=== PATIENT | male | born 1985 | race African-American/Black ===

== ENCOUNTER 2017-06-06 02:04 | Emergency (ER) | payer MEDICAID ==
[~2017-06-06] VITALS: Ht 175.3 cm; Wt 81.8 kg
[2017-06-06] MEDS: BACITRACIN 0.9 GM PACKET OINTMENT TP ONE (03:46)
[2017-06-06 03:59] LABS: BASOPHILS % (AUTO) 0.7 % (0.0-2.0); HEMATOCRIT 46.1 % (41-53); HEMOGLOBIN 15.3 g/dL (13.5-17.5); LYMPHOCYTES # (AUTO) 1.8 K/uL (1.0-4.8); LYMPHOCYTES % (AUTO) 19.5 % (22.0-44.0); MEAN CORPUSCULAR HEMOGLOBIN 26.7 pg (26.0-34.0); MEAN CORPUSCULAR HGB CONC 33.2 G/dL (31.0-37.0); MEAN CORPUSCULAR VOLUME 80 fL (80-100); MONOCYTES # (AUTO) 0.8 K/uL (0.1-1.0); MONOCYTES % (AUTO) 8.2 % (2.0-9.0); NEUTROPHILS # (AUTO) 6.4 K/uL (1.8-7.7); NEUTROPHILS % (AUTO) 69.6 % (40.0-70.0); PLATELET COUNT (AUTO) 178 K/uL (150-450); RED BLOOD CELL COUNT(AUTO) 5.74 MIL/uL (4.50-5.90); RED CELL DISTRIBUTION WIDTH 13.6 % (11.5-14.5)
[2017-06-06 04:14] LABS: ANION GAP 9 mmol/L (8-16); CALCIUM, TOTAL 9.3 mg/dL (8.8-10.5); CARBON DIOXIDE 28 mmol/L (22-29); CHLORIDE 97 mmol/L (98-107); CREATININE 1.04 mg/dL (0.60-1.30); GLOMERULAR FILTR. RATE CALC > 60 mL/min (>60); GLUCOSE,RANDOM 120 mg/dL (70-110); POTASSIUM 4.4 mmol/L (3.5-5.1); SODIUM SERUM 134 mmol/L (136-145); UREA NITROGEN, BLOOD 17 mg/dL (7-18)
[2017-06-06 04:18] LABS: AMPHET/METH SCREEN,URINE NEGATIVE (NEGATIVE); BARBITURATE SCREEN, URINE NEGATIVE (NEGATIVE); BENZODIAZEPINES SCREEN,URINE NEGATIVE (NEGATIVE); CANNABINOID SCREEN,URINE NEGATIVE (NEGATIVE); COCAINE SCREEN,URINE NEGATIVE (NEGATIVE); METHADONE SCREEN, URINE NEGATIVE (NEGATIVE); OPIATE SCREEN,URINE NEGATIVE (NEGATIVE); PHENCYCLIDINE SCREEN,URINE NEGATIVE (NEGATIVE)
[2017-06-06 04:47] VITALS: BP 128/76
== END 2017-06-06 04:49 | disposition home or self-care (01) ==
LOC: EMS 02:05
DX: S90.415A Abrasion, left lesser toe(s), initial encounter (principal); R42 Dizziness and giddiness; F17.210 Nicotine dependence, cigarettes, uncomplicated; X58.XXXA Exposure to other specified factors, initial encounter; Y93.89 Activity, other specified; Y92.89 Other specified places as the place of occurrence of the external cause; Y99.8 Other external cause status
CPT/HCPCS: 99284; 99406

== ENCOUNTER 2017-06-21 20:08 | Inpatient (IN) | payer MEDICAID ==
[~2017-06-21] VITALS: Ht 180.3 cm; Wt 87.6 kg
[2017-06-21] MEDS ORDERED: DSS100 PO (20:27)
[2017-06-21] MEDS ORDERED: LITH600 PO (20:27)
[2017-06-21] MEDS ORDERED: OLAN10TA6 PO (20:27)
[2017-06-21] MEDS ORDERED: IBUP-2070 PO (20:27)
[2017-06-21] MEDS ORDERED: DIPH25 PO (20:27)
[2017-06-21] MEDS ORDERED: ASCO500 PO (20:27)
[2017-06-21] MEDS ORDERED: VIST50 PO (20:27)
[2017-06-21] MEDS ORDERED: OLAN10TA3 PO (20:27)
[2017-06-21 20:40] LABS: BASOPHILS % (AUTO) 0.3 % (0.0-2.0); HEMATOCRIT 41.3 % (41-53); HEMOGLOBIN 13.9 g/dL (13.5-17.5); LYMPHOCYTES # (AUTO) 1.8 K/uL (1.0-4.8); LYMPHOCYTES % (AUTO) 13.1 % (22.0-44.0); MEAN CORPUSCULAR HEMOGLOBIN 26.8 pg (26.0-34.0); MEAN CORPUSCULAR HGB CONC 33.5 G/dL (31.0-37.0); MEAN CORPUSCULAR VOLUME 80 fL (80-100); MONOCYTES # (AUTO) 1.1 K/uL (0.1-1.0); MONOCYTES % (AUTO) 7.7 % (2.0-9.0); NEUTROPHILS # (AUTO) 10.7 K/uL (1.8-7.7); NEUTROPHILS % (AUTO) 77.9 % (40.0-70.0); PLATELET COUNT (AUTO) 197 K/uL (150-450); RED BLOOD CELL COUNT(AUTO) 5.17 MIL/uL (4.50-5.90)
[2017-06-21 20:49] LABS: ANION GAP 7 mmol/L (8-16); CALCIUM, TOTAL 9.2 mg/dL (8.8-10.5); CARBON DIOXIDE 29 mmol/L (22-29); CHLORIDE 103 mmol/L (98-107); CREATININE 1.32 mg/dL (0.60-1.30); GLOMERULAR FILTR. RATE CALC > 60 mL/min (>60); GLUCOSE,RANDOM 107 mg/dL (70-110); POTASSIUM 3.8 mmol/L (3.5-5.1); SODIUM SERUM 139 mmol/L (136-145); UREA NITROGEN, BLOOD 11 mg/dL (7-18)
[2017-06-21 20:55] LABS: ALANINE AMINOTRANSFERASE 25 U/L (12-78); ALBUMIN 4.2 g/dL (3.4-5.0); ALKALINE PHOSPHATASE 66 U/L (46-116); ASPARTATE AMINOTRANSFERASE 22 U/L (15-37); BILIRUBIN,TOTAL 0.3 mg/dL (0.1-1.0); TOTAL PROTEIN, SERUM 7.5 g/dL (6.4-8.2)
[2017-06-21 20:59] LABS: AMPHET/METH SCREEN,URINE NEGATIVE (NEGATIVE); BARBITURATE SCREEN, URINE NEGATIVE (NEGATIVE); BENZODIAZEPINES SCREEN,URINE NEGATIVE (NEGATIVE); CANNABINOID SCREEN,URINE NEGATIVE (NEGATIVE); COCAINE SCREEN,URINE NEGATIVE (NEGATIVE); METHADONE SCREEN, URINE NEGATIVE (NEGATIVE); OPIATE SCREEN,URINE NEGATIVE (NEGATIVE); PHENCYCLIDINE SCREEN,URINE NEGATIVE (NEGATIVE)
[2017-06-21] MEDS ORDERED: DiphenhydrAMINE HCL 50 MG/ML VIAL ONE (22:58)
[2017-06-21] MEDS ORDERED: LORazepam 2 MG/ML VIAL ONE (22:58)
[2017-06-21] MEDS ORDERED: HALOPERIDOL LACTATE 5 MG/ML VIAL ONE (22:58)
[2017-06-21] MEDS ORDERED: DiphenhydrAMINE HCL 50 MG/ML VIAL IM ONE (23:00)
[2017-06-21] MEDS ORDERED: HALOPERIDOL LACTATE 5 MG/ML VIAL IM ONE (23:00)
[2017-06-21] MEDS ORDERED: LORazepam 2 MG/ML VIAL IM ONE (23:00)
[2017-06-22] MEDS: ZOLPIDEM TARTRATE 10 MG TABLET PO PRN (03:42)
[2017-06-22] MEDS: LORazepam 2 MG TABLET PO PRN ×2 (03:42→18:04)
[2017-06-22] MEDS ORDERED: LIDOCAINE HCL 1% 10 ML VIAL INJ ONE (03:45)
[2017-06-22] MEDS ORDERED: POVIDONE-IODINE 10% 15 ML SOLUTION UD TP ONE (03:45)
[2017-06-22 04:15] LABS: APPEARANCE,URINE CLEAR (CLEAR); BILIRUBIN,URINE NEGATIVE (NEGATIVE); GLUCOSE, URINE (UA) NEGATIVE (NEGATIVE); KETONES,URINE NEGATIVE (NEGATIVE); LEUKOCYTE ESTERASE ,URINE NEGATIVE (NEGATIVE); NITRATE,URINE NEGATIVE (NEGATIVE); OCCULT BLOOD,URINE NEGATIVE (NEGATIVE); PH,URINE 6.5 (5.0-8.0); PROTEIN,URINE NEGATIVE (NEGATIVE); UROBILINOGEN,URINE 0.2 mg/dL (<=1.0)
[2017-06-22] MEDS ORDERED: PERTUSS(ACELL),DIPH,TET VAC/PF 0.5 ML VIAL IM ONE (04:15)
[2017-06-22] MEDS ORDERED: LIDOCAINE HCL/PF 1% 2 ML VIAL ONE (04:20)
[2017-06-22] MEDS ORDERED: LIDOCAINE HCL/PF 1% 2 ML VIAL IM ONE (04:30)
[2017-06-22] MEDS ORDERED: ONDANSETRON HCL 4 MG TABLET PO PRN (08:00)
[2017-06-22] MEDS ORDERED: BACITRACIN 28.4 GM OINTMENT TP PRN (08:00)
[2017-06-22] MEDS ORDERED: MAG HYDROX/AL HYDROX/SIMETH ES 30 ML SUSPENSION UDCUP PO PRN (08:00)
[2017-06-22] MEDS ORDERED: MAGNESIUM HYDROXIDE SUSPENSION 30 ML UDCUP PO PRN (08:00)
[2017-06-22] MEDS ORDERED: ACETAMINOPHEN 325 MG TABLET PO PRN (08:00)
[2017-06-22] MEDS ORDERED: ALBUTEROL SULFATE HFA 90 MCG/PUFF 8 GM INHALER IH PRN (08:00)
[2017-06-22] MEDS ORDERED: LOPERAMIDE HCL 2 MG CAPSULE PO PRN (08:00)
[2017-06-22] MEDS ORDERED: BENZOCAINE/MENTHOL LOZENGE MM PRN (08:00)
[2017-06-22] MEDS ORDERED: CloNIDine HCL 0.1 MG TABLET PO PRN (08:00)
[2017-06-22] MEDS ORDERED: PETROLATUM,WHITE 71 GM JELLY TP PRN (08:00)
[2017-06-22] MEDS ORDERED: HALOPERIDOL LACTATE 5 MG/ML VIAL IM ONE (08:45)
[2017-06-22] MEDS ORDERED: DiphenhydrAMINE HCL 50 MG/ML VIAL IM ONE (08:45)
[2017-06-22] MEDS ORDERED: LORazepam 2 MG/ML VIAL IM ONE (08:45)
[2017-06-22] MEDS: HALOPERIDOL 5 MG TABLET PO PRN (18:04)
[2017-06-22 19:31] VITALS: BP 133/88
[2017-06-22] MEDS ORDERED: OLANZapine 5 MG TABLET PO SCH (21:00)
[2017-06-22] MEDS: DiphenhydrAMINE HCL 25 MG CAPSULE PO SCH (21:12)
[2017-06-23] MEDS ORDERED: INFLUENZA VIRUS VACCINE QVS 2017-18 (3YR+)/PF 60 MCG/0.5 ML SYRINGE IM ONE (00:30)
[2017-06-23 02:20] VITALS: BP 106/61
[2017-06-23] MEDS: IBUPROFEN 600 MG TABLET PO PRN ×2 (02:26→16:23)
[2017-06-23] MEDS: LORazepam 2 MG TABLET PO PRN ×3 (02:45→17:18)
[2017-06-23] MEDS: ZOLPIDEM TARTRATE 10 MG TABLET PO PRN (02:45)
[2017-06-23 07:09] LABS: CHOL/HDL RATIO 2.7 (4.2-7.3)
[2017-06-23] MEDS: DiphenhydrAMINE HCL 25 MG CAPSULE PO SCH ×2 (07:59→20:31)
[2017-06-23] MEDS: OLANZapine 10 MG TABLET PO SCH ×2 (07:59→20:32)
[2017-06-23] MEDS: LITHIUM CARBONATE 600 MG CAPSULE PO SCH ×2 (07:59→16:30)
[2017-06-23] MEDS: HALOPERIDOL 5 MG TABLET PO PRN ×2 (07:59→17:19)
[2017-06-23 08:25] VITALS: BP 146/82
[2017-06-23] MEDS: NICOTINE 21 MG/24 HOUR PATCH TD SCH (12:19)
[2017-06-23] MEDS: BENZOCAINE/MENTHOL LOZENGE [8 LOZENGES/PACKET] MM PRN (18:22)
[2017-06-23] MEDS ORDERED: PHENYLEPHRINE/SHK LV/MIN OIL/PET 57 GM OINTMENT TP PRN (22:00)
[2017-06-23] MEDS ORDERED: DiphenhydrAMINE HCL 50 MG/ML VIAL IM ONE (22:30)
[2017-06-23] MEDS ORDERED: LORazepam 2 MG/ML VIAL IM ONE (22:30)
[2017-06-23] MEDS ORDERED: HALOPERIDOL LACTATE 5 MG/ML VIAL IM ONE (22:30)
[2017-06-24 08:15] VITALS: BP 135/64
[2017-06-24] MEDS: OLANZapine 10 MG TABLET PO SCH ×2 (08:16→22:30)
[2017-06-24] MEDS: IBUPROFEN 600 MG TABLET PO PRN ×2 (08:17→16:21)
[2017-06-24] MEDS: LITHIUM CARBONATE 600 MG CAPSULE PO SCH ×2 (08:18→16:21)
[2017-06-24] MEDS: NICOTINE 21 MG/24 HOUR PATCH TD SCH (08:19)
[2017-06-24] MEDS: LORazepam 2 MG TABLET PO PRN ×2 (08:20→14:33)
[2017-06-24 08:32] VITALS: BP 135/64
[2017-06-24] MEDS: HALOPERIDOL 5 MG TABLET PO PRN (14:33)
[2017-06-24 20:34] VITALS: BP 129/78
[2017-06-24] MEDS: DiphenhydrAMINE HCL 25 MG CAPSULE PO SCH (22:30)
[2017-06-25] MEDS: HALOPERIDOL 5 MG TABLET PO PRN ×3 (01:11→17:23)
[2017-06-25] MEDS: ZOLPIDEM TARTRATE 10 MG TABLET PO PRN ×2 (01:11→22:23)
[2017-06-25] MEDS: LORazepam 2 MG TABLET PO PRN ×3 (03:25→17:22)
[2017-06-25] MEDS: HydrOXYzine PAMOATE 50 MG CAPSULE PO PRN (03:28)
[2017-06-25 07:36] LABS: HEMATOCRIT 40.3 % (41-53); HEMOGLOBIN 13.3 g/dL (13.5-17.5); MEAN CORPUSCULAR HEMOGLOBIN 26.5 pg (26.0-34.0); MEAN CORPUSCULAR HGB CONC 32.9 G/dL (31.0-37.0); MEAN CORPUSCULAR VOLUME 81 fL (80-100); PLATELET COUNT (AUTO) 179 K/uL (150-450); RED BLOOD CELL COUNT(AUTO) 4.99 MIL/uL (4.50-5.90); RED CELL DISTRIBUTION WIDTH 14.6 % (11.5-14.5)
[2017-06-25 07:53] LABS: ANION GAP 6 mmol/L (8-16); CALCIUM, TOTAL 8.9 mg/dL (8.8-10.5); CARBON DIOXIDE 29 mmol/L (22-29); CHLORIDE 108 mmol/L (98-107); CREATININE 1.01 mg/dL (0.60-1.30); GLOMERULAR FILTR. RATE CALC > 60 mL/min (>60); GLUCOSE,RANDOM 91 mg/dL (70-110); PHOSPHORUS 4.6 mg/dL (2.5-4.9); POTASSIUM 4.2 mmol/L (3.5-5.1); SODIUM SERUM 143 mmol/L (136-145); UREA NITROGEN, BLOOD 12 mg/dL (7-18)
[2017-06-25 08:10] VITALS: BP 143/80
[2017-06-25] MEDS: LITHIUM CARBONATE 600 MG CAPSULE PO SCH ×2 (08:14→16:13)
[2017-06-25] MEDS: OLANZapine 10 MG TABLET PO SCH ×2 (08:15→20:10)
[2017-06-25] MEDS: IBUPROFEN 600 MG TABLET PO PRN ×2 (08:16→16:02)
[2017-06-25] MEDS: NICOTINE 21 MG/24 HOUR PATCH TD SCH (08:40)
[2017-06-25 08:54] VITALS: BP 136/76
[2017-06-25] MEDS ORDERED: OLANZapine 10 MG TABLET PO ONE (09:30)
[2017-06-25 09:52] LABS: LYMPHOCYTES % (MANUAL) 26 % (22-44); MONOCYTES % (MANUAL) 8 % (2-9); SEGMENTED NEUTROPHILS % 66 % (40-70)
[2017-06-25 16:02] VITALS: BP 121/78
[2017-06-25] MEDS: DiphenhydrAMINE HCL 25 MG CAPSULE PO SCH (20:09)
[2017-06-26] MEDS: HydrOXYzine PAMOATE 50 MG CAPSULE PO PRN (01:02)
[2017-06-26] MEDS: LORazepam 2 MG TABLET PO PRN ×3 (01:02→18:10)
[2017-06-26 08:03] VITALS: BP 139/79
[2017-06-26] MEDS: IBUPROFEN 600 MG TABLET PO PRN (08:03)
[2017-06-26] MEDS: OLANZapine 10 MG TABLET PO SCH ×2 (08:43→21:00)
[2017-06-26] MEDS: LITHIUM CARBONATE 600 MG CAPSULE PO SCH ×2 (08:44→16:26)
[2017-06-26] MEDS: NICOTINE 21 MG/24 HOUR PATCH TD SCH (08:46)
[2017-06-26 16:30] VITALS: BP 104/61
[2017-06-26] MEDS: HALOPERIDOL 5 MG TABLET PO PRN (17:18)
[2017-06-26 17:56] VITALS: BP 147/71
[2017-06-26] MEDS: DiphenhydrAMINE HCL 25 MG CAPSULE PO SCH (21:00)
[2017-06-27] MEDS: ZOLPIDEM TARTRATE 10 MG TABLET PO PRN (00:24)
[2017-06-27] MEDS: LORazepam 2 MG TABLET PO PRN ×4 (00:25→18:11)
[2017-06-27] MEDS: HydrOXYzine PAMOATE 50 MG CAPSULE PO PRN (04:50)
[2017-06-27] MEDS: LITHIUM CARBONATE 600 MG CAPSULE PO SCH ×2 (08:20→16:34)
[2017-06-27] MEDS: OLANZapine 10 MG TABLET PO SCH ×2 (08:20→21:33)
[2017-06-27] MEDS: NICOTINE 21 MG/24 HOUR PATCH TD SCH (08:20)
[2017-06-27 08:42] VITALS: BP 139/93
[2017-06-27 08:43] VITALS: BP 139/93
[2017-06-27] MEDS: BENZOCAINE/MENTHOL LOZENGE [8 LOZENGES/PACKET] MM PRN (09:55)
[2017-06-27] MEDS: HALOPERIDOL 5 MG TABLET PO PRN ×2 (12:31→18:11)
[2017-06-27 16:00] VITALS: BP 123/81
[2017-06-27] MEDS: DiphenhydrAMINE HCL 25 MG CAPSULE PO SCH (21:33)
[2017-06-28 00:49] VITALS: BP 115/69
[2017-06-28] MEDS: HydrOXYzine PAMOATE 50 MG CAPSULE PO PRN (01:10)
[2017-06-28] MEDS: ZOLPIDEM TARTRATE 10 MG TABLET PO PRN ×2 (01:10→23:58)
[2017-06-28] MEDS: LITHIUM CARBONATE 600 MG CAPSULE PO SCH ×2 (08:25→16:17)
[2017-06-28] MEDS: OLANZapine 10 MG TABLET PO SCH ×2 (08:25→20:33)
[2017-06-28] MEDS: NICOTINE 21 MG/24 HOUR PATCH TD SCH (08:27)
[2017-06-28 09:00] VITALS: BP 122/84
[2017-06-28] MEDS: LORazepam 2 MG TABLET PO PRN ×3 (11:41→23:58)
[2017-06-28] MEDS: HALOPERIDOL 5 MG TABLET PO PRN ×2 (11:41→16:17)
[2017-06-28 16:00] VITALS: BP 126/67
[2017-06-28] MEDS: DiphenhydrAMINE HCL 25 MG CAPSULE PO SCH (20:33)
[2017-06-29 00:44] VITALS: BP 129/81
[2017-06-29] MEDS: OLANZapine 10 MG TABLET PO SCH ×2 (08:23→20:15)
[2017-06-29] MEDS: LITHIUM CARBONATE 600 MG CAPSULE PO SCH ×2 (08:23→16:24)
[2017-06-29] MEDS: NICOTINE 21 MG/24 HOUR PATCH TD SCH (08:25)
[2017-06-29 09:04] VITALS: BP 128/88
[2017-06-29] MEDS: LORazepam 2 MG TABLET PO PRN (13:29)
[2017-06-29] MEDS: CLOTRIMAZOLE 1% 15 GM CREAM TP SCH (13:29)
[2017-06-29 16:00] VITALS: BP 141/88
[2017-06-29] MEDS: DiphenhydrAMINE HCL 25 MG CAPSULE PO SCH (20:15)
[2017-06-30 00:58] VITALS: BP 131/83
[2017-06-30] MEDS: ZOLPIDEM TARTRATE 10 MG TABLET PO PRN (00:59)
[2017-06-30] MEDS: BENZOCAINE/MENTHOL LOZENGE [8 LOZENGES/PACKET] MM PRN (01:07)
[2017-06-30] MEDS: HydrOXYzine PAMOATE 50 MG CAPSULE PO PRN (01:07)
[2017-06-30] MEDS: OLANZapine 10 MG TABLET PO SCH (07:48)
[2017-06-30] MEDS: LITHIUM CARBONATE 600 MG CAPSULE PO SCH (07:48)
[2017-06-30] MEDS: NICOTINE 21 MG/24 HOUR PATCH TD SCH (07:50)
[2017-06-30] MEDS: CLOTRIMAZOLE 1% 15 GM CREAM TP SCH (07:51)
[2017-06-30 08:37] VITALS: BP 131/73
== END 2017-06-30 16:15 | disposition home or self-care (01) | DRG 740 ==
LOC: EMS 20:09 → EEVIPCON 20:09 → 3EC 06-22 18:46
PROC: 0XQSXZZ Repair Right Ring Finger, External Approach (ICD-10-PCS; principal; 2017-06-22)
PROC: 0XQDXZZ Repair Right Lower Arm, External Approach (ICD-10-PCS; 2017-06-22)
DX: F25.0 Schizoaffective disorder, bipolar type (principal); B35.3 Tinea pedis; F17.200 Nicotine dependence, unspecified, uncomplicated; F41.9 Anxiety disorder, unspecified; K64.9 Unspecified hemorrhoids; S61.214A Laceration without foreign body of right ring finger without damage to nail, initial encounter; S51.811A Laceration without foreign body of right forearm, initial encounter; G47.00 Insomnia, unspecified; Z65.3 Problems related to other legal circumstances; Z79.899 Other long term (current) drug therapy; Z71.6 Tobacco abuse counseling; W22.09XA Striking against other stationary object, initial encounter; Y93.89 Activity, other specified; Y92.89 Other specified places as the place of occurrence of the external cause; Y99.8 Other external cause status; Z72.89 Other problems related to lifestyle; Z71.41 Alcohol abuse counseling and surveillance of alcoholic
CPT/HCPCS: 83735; 84100; 85007; 90715; 96372; 99285; G0480; J0690; J1200; J1630; J2060; J3490

== ENCOUNTER 2017-07-05 00:13 | Emergency (ER) | payer MEDICAID, OTHER ==
[~2017-07-05] VITALS: Ht 180.3 cm; Wt 86.4 kg
[~2017-07-05 00:13] MED LIST: DIPH25 PO; LITH600 PO; OLAN10TA3 PO
[2017-07-05 01:09] LABS: BASOPHILS % (AUTO) 0.5 % (0.0-2.0); EOSINOPHILS % (AUTO) 2.4 % (1.0-6.0); HEMATOCRIT 39.9 % (41-53); HEMOGLOBIN 13.3 g/dL (13.5-17.5); LYMPHOCYTES # (AUTO) 1.8 K/uL (1.0-4.8); LYMPHOCYTES % (AUTO) 16.3 % (22.0-44.0); MEAN CORPUSCULAR HEMOGLOBIN 26.6 pg (26.0-34.0); MEAN CORPUSCULAR HGB CONC 33.3 G/dL (31.0-37.0); MEAN CORPUSCULAR VOLUME 80 fL (80-100); MONOCYTES # (AUTO) 1.1 K/uL (0.1-1.0); MONOCYTES % (AUTO) 9.7 % (2.0-9.0); NEUTROPHILS # (AUTO) 7.9 K/uL (1.8-7.7); NEUTROPHILS % (AUTO) 71.1 % (40.0-70.0); PLATELET COUNT (AUTO) 192 K/uL (150-450); RED BLOOD CELL COUNT(AUTO) 4.99 MIL/uL (4.50-5.90); RED CELL DISTRIBUTION WIDTH 14.4 % (11.5-14.5)
[2017-07-05 01:18] LABS: ANION GAP 10 mmol/L (8-16); CALCIUM, TOTAL 8.9 mg/dL (8.8-10.5); CARBON DIOXIDE 27 mmol/L (22-29); CHLORIDE 105 mmol/L (98-107); CREATININE 1.07 mg/dL (0.60-1.30); GLOMERULAR FILTR. RATE CALC > 60 mL/min (>60); GLUCOSE,RANDOM 111 mg/dL (70-110); POTASSIUM 3.8 mmol/L (3.5-5.1); SODIUM SERUM 142 mmol/L (136-145); UREA NITROGEN, BLOOD 19 mg/dL (7-18)
[2017-07-05 01:23] LABS: ALANINE AMINOTRANSFERASE 30 U/L (12-78); ALKALINE PHOSPHATASE 79 U/L (46-116); ASPARTATE AMINOTRANSFERASE 42 U/L (15-37); BILIRUBIN,TOTAL 0.4 mg/dL (0.1-1.0); TOTAL PROTEIN, SERUM 7.4 g/dL (6.4-8.2)
[2017-07-05 01:28] LABS: LITHIUM < 0.20 mmol/L (0.60-1.20)
[2017-07-05] MEDS ORDERED: DiphenhydrAMINE HCL 25 MG CAPSULE PO ONE (01:30)
[2017-07-05] MEDS ORDERED: HALOPERIDOL 5 MG TABLET PO ONE (01:30)
[2017-07-05] MEDS ORDERED: LORazepam 1 MG TABLET PO ONE (01:30)
[2017-07-05 06:43] VITALS: BP 105/62
== END 2017-07-05 07:26 | disposition home or self-care (01) ==
LOC: EMS 00:14
DX: F25.9 Schizoaffective disorder, unspecified (principal); F17.210 Nicotine dependence, cigarettes, uncomplicated
CPT/HCPCS: 36415; 80053; 80178; 85025; 99285; G0480

== ENCOUNTER 2017-07-09 08:15 | Inpatient (IN) | payer MEDICAID, OTHER ==
[~2017-07-09] VITALS: Ht 180.3 cm; Wt 85.3 kg
[2017-07-09] MEDS ORDERED: OLAN10TA3 PO (08:40)
[2017-07-09] MEDS ORDERED: LITH600 PO (08:40)
[2017-07-09] MEDS ORDERED: DIPH50 PO (08:40)
[2017-07-09] MEDS ORDERED: PERCT PO (08:40)
[2017-07-09 08:49] LABS: BASOPHILS % (AUTO) 0.5 % (0.0-2.0); EOSINOPHILS % (AUTO) 2.5 % (1.0-6.0); HEMATOCRIT 39.4 % (41-53); LYMPHOCYTES # (AUTO) 1.6 K/uL (1.0-4.8); LYMPHOCYTES % (AUTO) 15.8 % (22.0-44.0); MEAN CORPUSCULAR HEMOGLOBIN 26.9 pg (26.0-34.0); MEAN CORPUSCULAR HGB CONC 33.1 G/dL (31.0-37.0); MEAN CORPUSCULAR VOLUME 81 fL (80-100); MONOCYTES # (AUTO) 0.8 K/uL (0.1-1.0); MONOCYTES % (AUTO) 7.5 % (2.0-9.0); NEUTROPHILS # (AUTO) 7.4 K/uL (1.8-7.7); NEUTROPHILS % (AUTO) 73.7 % (40.0-70.0); PLATELET COUNT (AUTO) 171 K/uL (150-450); RED BLOOD CELL COUNT(AUTO) 4.85 MIL/uL (4.50-5.90); RED CELL DISTRIBUTION WIDTH 14.5 % (11.5-14.5)
[2017-07-09 09:02] LABS: LITHIUM 0.41 mmol/L (0.60-1.20)
[2017-07-09 09:04] LABS: ANION GAP 7 mmol/L (8-16); CALCIUM, TOTAL 8.9 mg/dL (8.8-10.5); CARBON DIOXIDE 29 mmol/L (22-29); CHLORIDE 102 mmol/L (98-107); CREATININE 1.06 mg/dL (0.60-1.30); GLOMERULAR FILTR. RATE CALC > 60 mL/min (>60); GLUCOSE,RANDOM 99 mg/dL (70-110); POTASSIUM 3.6 mmol/L (3.5-5.1); SODIUM SERUM 138 mmol/L (136-145); UREA NITROGEN, BLOOD 15 mg/dL (7-18)
[2017-07-09 09:09] LABS: ALANINE AMINOTRANSFERASE 27 U/L (12-78); ALKALINE PHOSPHATASE 75 U/L (46-116); ASPARTATE AMINOTRANSFERASE 27 U/L (15-37); BILIRUBIN,TOTAL 0.3 mg/dL (0.1-1.0); TOTAL PROTEIN, SERUM 7.3 g/dL (6.4-8.2)
[2017-07-09 10:59] LABS: AMPHET/METH SCREEN,URINE NEGATIVE (NEGATIVE); BARBITURATE SCREEN, URINE NEGATIVE (NEGATIVE); BENZODIAZEPINES SCREEN,URINE NEGATIVE (NEGATIVE); CANNABINOID SCREEN,URINE NEGATIVE (NEGATIVE); COCAINE SCREEN,URINE NEGATIVE (NEGATIVE); METHADONE SCREEN, URINE NEGATIVE (NEGATIVE); OPIATE SCREEN,URINE NEGATIVE (NEGATIVE); PHENCYCLIDINE SCREEN,URINE NEGATIVE (NEGATIVE)
[2017-07-09 17:29] VITALS: BP 120/73
[2017-07-09] MEDS ORDERED: BACITRACIN 28.4 GM OINTMENT TP PRN (17:45)
[2017-07-09] MEDS ORDERED: MAG HYDROX/AL HYDROX/SIMETH ES 30 ML SUSPENSION UDCUP PO PRN (17:45)
[2017-07-09] MEDS ORDERED: MAGNESIUM HYDROXIDE SUSPENSION 30 ML UDCUP PO PRN (17:45)
[2017-07-09] MEDS ORDERED: ONDANSETRON HCL 4 MG TABLET PO PRN (17:45)
[2017-07-09] MEDS ORDERED: PETROLATUM,WHITE 71 GM JELLY TP PRN (17:45)
[2017-07-09] MEDS ORDERED: BENZOCAINE/MENTHOL LOZENGE MM PRN (17:45)
[2017-07-09] MEDS ORDERED: ALBUTEROL SULFATE HFA 90 MCG/PUFF 8 GM INHALER IH PRN (17:45)
[2017-07-09] MEDS ORDERED: CloNIDine HCL 0.1 MG TABLET PO PRN (17:45)
[2017-07-09] MEDS ORDERED: LOPERAMIDE HCL 2 MG CAPSULE PO PRN (17:45)
[2017-07-09] MEDS ORDERED: ACETAMINOPHEN 325 MG TABLET PO PRN (17:45)
[2017-07-09] MEDS: LORazepam 2 MG TABLET PO PRN (18:03)
[2017-07-09] MEDS: IBUPROFEN 600 MG TABLET PO PRN (18:03)
[2017-07-10 01:43] VITALS: BP 139/66
[2017-07-10] MEDS: LORazepam 2 MG TABLET PO PRN ×2 (02:32→16:03)
[2017-07-10] MEDS: IBUPROFEN 600 MG TABLET PO PRN ×2 (02:32→14:18)
[2017-07-10 08:19] VITALS: BP 119/77
[2017-07-10 08:26] LABS: CHOL/HDL RATIO 2.6 (4.2-7.3)
[2017-07-10] MEDS: LITHIUM CARBONATE 600 MG CAPSULE PO SCH ×2 (09:12→16:28)
[2017-07-10 14:15] VITALS: BP 143/76
[2017-07-10 15:19] VITALS: BP 142/83
[2017-07-10 16:19] VITALS: BP 145/65
[2017-07-10] MEDS: OLANZapine 10 MG TABLET PO SCH (20:26)
[2017-07-10] MEDS: DiphenhydrAMINE HCL 25 MG CAPSULE PO SCH (20:26)
[2017-07-11 01:40] VITALS: BP 126/66
[2017-07-11] MEDS: IBUPROFEN 600 MG TABLET PO PRN ×2 (03:49→08:15)
[2017-07-11 08:06] VITALS: BP 134/78
[2017-07-11] MEDS: LITHIUM CARBONATE 600 MG CAPSULE PO SCH ×2 (08:15→16:38)
[2017-07-11 09:15] VITALS: BP 132/78
[2017-07-11 16:16] VITALS: BP 118/64
[2017-07-11] MEDS: LORazepam 2 MG TABLET PO PRN ×2 (16:38→22:07)
[2017-07-11] MEDS: HALOPERIDOL 5 MG TABLET PO PRN (16:38)
[2017-07-11] MEDS: OLANZapine 10 MG TABLET PO SCH (20:42)
[2017-07-11] MEDS: DiphenhydrAMINE HCL 25 MG CAPSULE PO SCH (20:42)
[2017-07-11] MEDS: ZOLPIDEM TARTRATE 10 MG TABLET PO PRN (20:43)
[2017-07-12 05:56] VITALS: BP 126/83
[2017-07-12] MEDS: IBUPROFEN 600 MG TABLET PO PRN ×2 (06:46→19:57)
[2017-07-12] MEDS: LITHIUM CARBONATE 600 MG CAPSULE PO SCH ×2 (08:03→16:38)
[2017-07-12 08:05] VITALS: BP 130/66
[2017-07-12] MEDS: LORazepam 2 MG TABLET PO PRN ×2 (13:47→17:47)
[2017-07-12] MEDS: HALOPERIDOL 5 MG TABLET PO PRN ×2 (13:47→17:47)
[2017-07-12 16:04] VITALS: BP 129/64
[2017-07-12] MEDS: OLANZapine 10 MG TABLET PO SCH (20:21)
[2017-07-12] MEDS: DiphenhydrAMINE HCL 25 MG CAPSULE PO SCH (20:21)
[2017-07-12] MEDS: ZOLPIDEM TARTRATE 10 MG TABLET PO PRN (20:21)
[2017-07-13 01:36] VITALS: BP 125/75
[2017-07-13] MEDS: LORazepam 2 MG TABLET PO PRN (05:26)
[2017-07-13 08:29] VITALS: BP 138/84
[2017-07-13] MEDS: LITHIUM CARBONATE 600 MG CAPSULE PO SCH (09:29)
[2017-07-13] MEDS ORDERED: LITH600 PO ×2 (15:03→16:10)
[2017-07-13] MEDS ORDERED: OLAN20TA2 PO (15:03)
[2017-07-13] MEDS ORDERED: DIPH50 PO (15:03)
[2017-07-13] MEDS ORDERED: OLAN10TA3 PO (16:11)
== END 2017-07-13 16:35 | disposition home or self-care (01) | DRG 750 ==
LOC: EMS 08:16 → B3A 16:23
DX: F25.0 Schizoaffective disorder, bipolar type (principal); F41.9 Anxiety disorder, unspecified; F17.210 Nicotine dependence, cigarettes, uncomplicated; M79.642 Pain in left hand; F12.90 Cannabis use, unspecified, uncomplicated; G47.00 Insomnia, unspecified; K64.9 Unspecified hemorrhoids; Z79.899 Other long term (current) drug therapy; Z71.41 Alcohol abuse counseling and surveillance of alcoholic; Z71.6 Tobacco abuse counseling
CPT/HCPCS: 87081; G0480